=== PATIENT | female | born 1980 | race Caucasian/White ===

== ENCOUNTER 2020-08-22 23:18 | Emergency (ER) | payer OTHER, SELFPAY ==
[2020-08-22 23:23] VITALS: BP 89/51; PULSE 90; RESP 12; TEMP 36.6; O2SAT 100
--- NOTE | 2020-08-22 23:23 | ECG_ITS ---
Measurements Intervals [place] Rate: 95 P: 59 NV: 150 QRS: 77 QRSD: 94 T: 33 QT: 388 QTc: 489 Interpretive Statements SINUS RHYTHM LOW QRS VOLTAGE IN PRECORDIAL LEADS NONSPECIFIC T-WAVE ABNORMALITY- ANT/INF LEADS BASELINE ARTIFACT- II, III, AVR, AVF, V1, V3-V6 BORDERLINE ECG Electronically Signed On 08-23-2020 7:38:51 CDT by Fili Braden D.O.
[2020-08-22 23:31] VITALS: BP 89/51; PULSE 90; RESP 17; TEMP 36.6; O2SAT 100
--- NOTE | 2020-08-22 23:33 | PC.NURSE ---
Pt presents to ED with hx of SONI disease. Pt was found on the bathroom floor. Family was present, family denies fall and head injury. No obvious wounds noted. Pt noted to be drinking tonight. Pt is alert and responsive to staff with some delays. Vitals are stable and pt is noted to be hypotensive with fluids infusing to gravity. Seizure pads applied. Pt denies pain and discomfort at this time. Per EMS seizure like activity has been persistent for the past hour. Sister presented to ED and states she was present at time of onset. Per pt sister, pt has cardiogenic syncope and vagal'd and loc for a few seconds. Pt was taken home where had multiple episodes of tremor and emesis. Sister states pt usually has focal seizures and today she had more of tonic clonic. Pt remains alert and responsive. Sister, Niru, noted to be great historian.
[2020-08-22] MEDS: SODIUM CHLORIDE 0.9% IV 1,000 ML 999 ML IV CONT (23:38)
[2020-08-22 23:51] LABS: Basophils Percent Auto 0.3 % (0.2-1.2); Eosinophils Percent Auto 0.3 % (0-4.4); Hematocrit 41.1 % (37.0-47.0); Hemoglobin 14.1 g/dL (12.0-15.0); Immature Granulocyte Absolute 0.03 K/mm3 (0.00-0.031); Immature Granulocyte Percent A 0.4 % (0-0.5); Lymphocytes Absolute Auto 0.74 K/mm3 (0.9-3.2); Lymphocytes Percent Auto 9.9 % (18.3-44.2); Mean Corpuscular HGB Conc 34.3 g/dl (32-36); Mean Corpuscular Hemoglobin 30.7 pg (26-34); Mean Corpuscular Volume 89.5 fl (80-100); Mean Platelet Volume 10.9 fl (7.4-10.4); Monocytes Absolute Auto 0.2 K/mm3 (0.1-0.6); Monocytes Percent Auto 2.8 % (2.6-8.5); Neutrophils Absolute Auto 6.4 K/mm3 (1.3-6.7); Neutrophils Percent Auto 86.3 % (45.5-73.1); Platelet Count Result 214 k/mm3 (150-375); Red Blood Count 4.59 M/mm3 (4.2-5.4); Red Cell Distribution Width 12.9 % (11.5-14.5); White Blood Count 7.5 K/mm3 (4.5-10.0)
[2020-08-23 00:05] LABS: Alanine Aminotransferase 20 U/L (4-35); Albumin Level 4.3 g/dL (3.5-5.1); Alkaline Phosphatase 44 U/L (38-126); Anion Gap 11 mmol/L (8-16); Aspartate Amino Transferase 23 U/L (14-36); Bilirubin,Total 0.4 mg/dL (0.2-1.3); Blood Urea Nitrogen 8 mg/dL (7-17); Calcium 8.5 mg/dL (8.4-10.2); Carbon Dioxide 21 mmol/L (22-30); Chloride 111 mmol/L (98-107); Estimated CRCL calculation 80 ml/min; Estimated Glomerular Filt Rate > 60; Glucose 90 mg/dL (65-105); Potassium 3.4 mmol/L (3.4-5.0); Sodium 143 mmol/L (137-145)
[2020-08-23 00:28] LABS: Add Urine Microscopic? NO; Appearance Urine Clear (Clear); Bilirubin Urine Negative (Negative); Blood Urine Negative (Negative); Color Urine Straw (Yellow); Glucose Urine UA Negative (Negative); Ketones Urine Negative (Negative); Leukocyte Esterase Ur Negative LEU/UL (Negative); Nitrate Urine Negative (Negative); Protein Urine Negative (Negative); Specific Grav Ur 1.006 (1.001-1.035); Urobilinogen Urine Negative mg/dL (<2.0)
--- NOTE | 2020-08-23 00:32 | PC.NURSE ---
Pt noted to be more alert and response time has improved. Pt is currently complaining of severe headache and EDMD notified and states he will place meds. Pt resting on cart in its lowest position with call button and personal items within reach. vitals are stable. Sister remains at bedside.
[2020-08-23 00:39] VITALS: BP 97/58; PULSE 83; RESP 17; O2SAT 100
--- NOTE | 2020-08-23 00:40 | ED.GENADULT ---
HPI - General Adult General Chief complaint: Seizure Stated complaint: seizure Time Seen by Provider: 08/22/20 23:20 History of Present Illness HPI narrative: Patient is a 40-year-old female who presents the emergency department with chief complaint of syncope/seizure. 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 Patient reports that tonight she had an episode where her blood pressure dropped and she had convulsive activity that lasted longer than usual. Patient states that currently she is back to normal except for the right she has a headache. Situation Related Data Home Medications Medication Instructions Recorded Confirmed alprazolam 02/10/19 clindamycin-benzoyl peroxide TOPICAL 02/10/19 [Onexton] trazodone 02/10/19 tretinoin microspheres [Retin-A TOPICAL 02/10/19 Micro Pump] vilazodone [Viibryd] mg 02/10/19 Allergies Allergy/AdvReac Type Severity Reaction Status Date / Time tree nut Allergy Verified 03/19/13 18:32 Review of Systems Review of Systems: Narrative: A 10 system review of systems was completed on the patient and is negative except for what is stated in the HPI. Nursing and ancillary documentation was reviewed. PMFSH Comments Patient has history of pots and nonepileptiform seizures Exam Narrative: Exam Narrative: GENERAL: Well-appearing, well-nourished, and in no acute distress. HEAD: Normocephalic, atraumatic. EYES: PERRLA and EOMI. ENT: Nares clear, no rhinorrhea or epistaxis. Mucous membranes moist. NECK: Supple. CHEST: Clear to auscultation. No respiratory distress. HEART: Regular rate and rhythm. No murmur heard. Normal peripheral pulses. ABDOMEN: Soft, nontender, nondistended, normal active bowel sounds. EXTREMITIES: Normal range of motion. No edema. SKIN: Warm, dry, no rash. NEURO: No focal deficits. Alert and oriented x3. PSYCH: Normal mood and affect. Course Vital Signs Vital signs: Vital Signs Temperature 36.6 C 08/22/20 23:23 Pulse Rate 90 08/22/20 23:23 Respiratory Rate 12 08/22/20 23:23 Blood Pressure 89/51 L 08/22/20 23:23 Pulse Oximetry 100 08/22/20 23:23 Temperature 36.6 C 08/22/20 23:31 Pulse Rate 83 08/23/20 00:39 Respiratory Rate 17 08/23/20 00:39 Blood Pressure 97/58 L 08/23/20 00:39 Pulse Oximetry 100 08/23/20 00:39 Medical Decision Making Vital Signs Vital Signs: Vital Signs Temperature 36.6 C 08/22/20 23:23 Pulse Rate 90 08/22/20 23:23 Respiratory Rate 12 08/22/20 23:23 Blood Pressure 89/51 L 08/22/20 23:23 Pulse Oximetry 100 08/22/20 23:23 Temperature 36.6 C 08/22/20 23:31 Pulse Rate 83 08/23/20 00:39 Respiratory Rate 17 08/23/20 00:39 Blood Pressure 97/58 L 08/23/20 00:39 Pulse Oximetry 100 08/23/20 00:39 Lab Data Result diagrams: 08/22/20 23:44 08/22/20 23:44 Labs: Lab Results 08/22/20 08/22/20 08/22/20 Range/Units 23:44 23:44 23:44 WBC 7.5 (4.5-10.0) K/mm3 RBC 4.59 (4.2-5.4) M/mm3 Hgb 14.1 (12.0-15.0) g/dL Hct 41.1 (37.0-47.0) % MCV 89.5 (80-100) fl MCH 30.7 (26-34) pg MCHC 34.3 (32-36) g/dl RDW 12.9 (11.5-14.5) % Plt Count 214 (150-375) k/mm3 MPV 10.9 H (7.4-10.4) fl Immature Gran % (Auto) 0.4 (0-0.5) % Neut % (Auto) 86.3 H (45.5-73.1) % Lymph % (Auto) 9.9 L (18.3-44.2) % [place] % (Auto) 2.8 (2.6-8.5) % Eos % (Auto) 0.3 (0-4.4) % Baso % (Auto) 0.3 (0.2-1.2) % Lymph # (Auto) 0.74 L (0.9-3.2) K/mm3 [place] # (Auto) 0.2 (0.1-0.6) K/mm3 Eos # (Auto) 0.0 (0-0.3) K/mm3 Baso # (Auto) 0.0 (0.0-0.1) K/mm3 Abs Immat Gran (auto) 0.03 (0.00-0.031) K/mm3 Absolute Neuts (auto) 6.4 (1.3-6.7) K/mm3 Absolute Nucleated RBC 0.0 (0.0-0.012) K/mm3 Nucleated RBC % 0.0 (0.0-0.2) % Sodium 143 (137-145) mmol/L Potassium 3.4 (3.4-5
[2020-08-23] MEDS: KETOROLAC 30 MG/ML VIAL (*BKC) IV PUSH (00:53)
--- NOTE | 2020-08-23 01:31 | PC.NURSE ---
Pt resting on cart and denies all pain and discomfort at this time. Sister remains at bedside and she and pt updated on poc. Pt ready for dc and all questions and concerns addressed. Vitals are stable and pt in no obvious distress.
[2020-08-23 01:33] VITALS: BP 93/57; PULSE 76; RESP 17; TEMP 37; O2SAT 97
[2020-08-23 01:34] VITALS: BP 93/57; PULSE 76; RESP 17; TEMP 37; O2SAT 97
[2020-08-23 02:49] LABS: Reflex Lactic Acid Yes or No Add Lactic
== END 2020-08-23 01:36 | disposition home or self-care (01) ==
PROVIDERS: Emergency Provider Emergency Medicine; PCP Internal Medicine
DX: I49.8 Other specified cardiac arrhythmias (principal); R56.9 Unspecified convulsions; R94.31 Abnormal electrocardiogram [ECG] [EKG]
CPT/HCPCS: 36415; 80053; 81003; 81025; 83605; 83735; 85025; 93005; 96361; 96374; 99284; J1885; J7030